=== PATIENT | male | born 1980 | race Caucasian/White ===

== ENCOUNTER 2020-04-29 04:11 | Emergency (ER) | payer BC ==
[2020-04-29] MEDS ORDERED: Lidocaine 5% 700 MG Patch TOP ONE (04:29)
[2020-04-29] MEDS ORDERED: HYDROmorphone 1 MG/ML Syringe IM ONE (04:30)
[2020-04-29] MEDS ORDERED: traMADol 50 MG Tab PO ONE (04:30)
[2020-04-29 04:35] VITALS: BP 143/88
--- NOTE | 2020-04-29 04:44 | EDM.PDOC ---
ED HPI GENERAL MEDICAL PROBLEM - General Chief Complaint: Back Pain or Injury Stated Complaint: BACK PAIN Time Seen by Provider: 04/29/20 04:13 - History of Present Illness INITIAL COMMENTS - FREE TEXT/NARRATIVE: HISTORY AND PHYSICAL: History of present illness: This is a 39-year-old gentleman with a history significant for chronic lower back pain who is status post a discectomy of L5-S1 who presents ER today secondary to increasing pain to his lower back radiating down his right leg that started early this morning. Patient reports that when he tried to get out of bed approximately noontime today he felt a sharp pain radiating down his right leg. Patient reports he has been in severe pain since. Patient reports that the doctor that usually write him for his Katy 7.5 has been fired from the clinic that he goes to and he does have an appointment to see someone there for another 2 weeks. Patient reports that he ran out of his Katy 7.5's and has not been able to get that refilled secondary to his primary care doctor being fired. Patient reports he also takes baclofen and ibuprofen for his pain which he took today with minimal relief in his discomfort. Patient reports that he has used lidocaine patches in the past with varying degrees of relief. Patient denies any recent fevers, shakes, chills, nausea, vomiting, diarrhea, dysuria, frequency, urgency, hematuria. Patient denies any weakness to his upper or lower extremities. Patient reports that he has been able to ambulate but is somewhat limited secondary to his pain and not weakness. Patient denies any loss of bowel or bladder function. Patient denies any paresthesias to his perineum or perirectal region. Patient denies any weakness or paresthesias to his lower extremities. Review of systems: As per history of present illness and below otherwise all systems reviewed and negative. Past medical history: As per history of present illness and as reviewed below otherwise noncontributory. Surgical history: As per history of present illness and as reviewed below otherwise noncontributory. Social history: No reported history of drug or alcohol abuse. Family history: As per history of present illness and as reviewed below otherwise noncontributory. Physical exam: Constitutional: Patient is oriented to person, place, and time. Appears well- developed and well-nourished. No distress. HEENT: Moist mucous membranes Head: Normocephalic and atraumatic Eyes: Right eye exhibits no discharge. Left eye exhibits no discharge. No scleral icterus Neck: Normal range of motion. No tracheal deviation present. Cardiovascular: Normal rate and regular rhythm. Pulmonary: Effort normal, no respiratory distress. Abdominal: No distention Musculoskeletal: Normal range of motion Neurologic: Alert and oriented to person, place and time. Skin: [place], warm and dry. Psychiatric: Normal mood and affect. Behavior is normal. Judgment and thought content normal. Nursing note and vital signs have been reviewed Patient's ER physical exam is significant for tenderness palpation to patient's lower back at the L4 L5-S1 region. Patient does have an old incisional scar in that region with no fluctuance, erythema or evidence of infection. Patient has tenderness to palpation throughout his entire lower extremity. Patient lower extremities are warm and dry. Patient has bounding DP/PT pulses bilaterally. Patient has excellent capillary refill. Patient has no evidence of DVT or arterial occlusion on exam. Patient's sensations are intact. Neuro: A&Ox3. Cranial nerves II-XII grossly intact, 5/5 strength to bilateral upper and lower extremities, sensation intact to bilateral upper and lower extremities, no nystagmus, PERRLA, EOMI, normal speech, proprioception intact to bilateral lower extremities, normal finger to nose test, gait normal Patient is able to ambulate but appears to be in discomfort and pain. This patient was seen and evaluated during the 2019 SARS-CoV-2 novel coronavirus pandemic period. Community viral transmission is ongoing at time of this encounter and the emergency department is operating under pandemic response procedures. Therapeutics: Dilaudid 1 mg IM Lidoderm patch Assessment and plan: This is a 39-year-old gentleman with a history significant for chronic lower back pain who is status post discectomy who is scheduled to have fusion of L4 L5-S1 in the near future who presents ER today complaining of severe pain to his lower back that occurred early this morning. Patient reports that he woke up in the morning and let his dog out without any difficulty. He went back to bed at approximately noontime when he tried to get up he felt a snap to his lower back and has been having severe pain radiating down his right leg since. Patient's physical exam is unremarkable for any acute neurological deficits. Patient does have significant pain discomfort with palpation of his lower extremity. Patient is neurologically intact without any evidence of DVT or acute arterial occ lusion. Patient does not exhibit any signs or symptoms consistent with cauda equina syndrome. Patient denies any paresthesias to his perineal region or perirectal region. Patient denies any loss of bowel or bladder function. Patient reports that he is requesting assistance with pain management until he is able to see his doctor in 2 weeks so that they can resume his Katy 7.5 that he is run out of. Patient be given a dose of Dilaudid here in the ED as well as a Lidoderm patch. I have discussed with the patient that I will not be able to refill his Katy 7.5 prescriptions for 2-week. But I will assist him with a short supply as well as a prescription for Lidoderm patches. Patient is in agreement with this plan. Reassessment at the time of disposition demonstrates that the patient is in no acute distress. The patient has remained stable throughout the entire ED visit and is without objective evidence for acute process requiring urgent intervention or hospitalization. The patient is stable for discharge, counseling is provided as documented above, discussed symptomatic treatment and specific conditions for return. I have spoken with the patient/caregiver and discussed todays findings, in addition to providing specific details for the plan of care. Questions are answered and there is agreement with the plan. Definitive disposition and diagnosis as appropriate pending reevaluation and review of above. DME note: Crutches ordered for patient to utilize to assist with ambulation and stability. Patient reports severe pain and inability to ambulate secondary to pain and instability when he walks and he is unable to go up the stairs. Crutches will assist patient by helping stabilize him and help prevent him from falling. This should be utilized for 2 weeks until he is able to see his primary care physician for definitive management and fusion of L4 L5-S1. Lower Back Pain Score (Numeric/FACES): 5 Right Foot Pain Score (Numeric/FACES): 10 - Related Data Allergies Allergy/AdvReac Type Severity Reaction Status Date / Time No Known Allergies Allergy Verified 12/09/14 10:34 Home Meds: Home Meds Acetaminophen/HYDROcodone [Katy 325-7.5 MG] 1 tab PO Q6H PRN #15 tablet 04/29/20 [Rx] Acetaminophen/HYDROcodone [Katy 325-7.5 MG] 1 tab PO Q6H PRN #15 tablet 04/29/20 [Rx] Baclofen 20 mg PO ASDIRECTED PRN 04/29/20 [History] Lidocaine 5% [Lidoderm 5%] 1 patch TOP DAILY PRN #7 patch 04/29/20 [Rx] Past Medical History - Past Health History Medical/Surgical History: Denies Medical/Surgical History ED ROS GENERAL - Review of Systems Review Of Systems: See Below ED EXAM, GENERAL - Physical Exam Exam: See Below Course - Vital Signs Last Recorded V/S: Last Vital Signs Temp 97.7 F 04/29/20 04:30 Pulse 118 H 04/29/20 04:30 Resp 16 04/29/20 04:30 BP 143/88 H 04/29/20 04:30 Pulse Ox 96 04/29/20 04:30 - Orders/Labs/Meds Orders: Active Orders 24 hr Category Date Time Status DME for Discharge [COMM] Stat Oth 04/29/20 05:30 Ordered Meds: Medications Discontinued Medications Generic Name Dose Route Start Last Admin Trade Name Freq PRN Reason Stop Dose Admin Hydromorphone HCl 1 mg 04/29/20 04:30 04/29/20 04:49 Dilaudid IM 04/29/20 04:31 1 mg ONETIME ONE Administration Lidocaine 700 mg 04/29/20 04:29 04/29/20 04:46 Lidoderm 5% TOP 04/29/20 04:30 700 mg ONETIME ONE Administration Tramadol HCl 50 mg 04/29/20 04:30 04/29/20 04:45 Ultram PO 04/29/20 04:31 50 mg ONETIME ONE Administration Departure - Departure Time of Disposition: 04:44 Disposition: Home, Self-Care 01 Condition: Good Clinical Impression: Low back pain radiating down leg Low back pain Qualifiers: Chronicity: acute Back pain laterality: right - Discharge Information Prescriptions: Lidocaine 5% [Lidoderm 5%] 1 patch TOP DAILY PRN #7 patch PRN Reason: Pain Acetaminophen/HYDROcodone [Katy 325-7.5 MG] 1 tab PO Q6H PRN #15 tablet PRN Reason: Pain Acetaminophen/HYDROcodone [Katy 325-7.5 MG] 1 tab PO Q6H PRN #15 tablet PRN Reason: Pain Instructions: Acute Back Pain, Adult, What You Need to Know About Chronic Back Pain Forms: ED Department Discharge Additional Instructions: You were seen and evaluated in the ER today for an acute exacerbation of your chronic lower back pain. You have been given a dose of intramuscular Dilaudid in the ER as well as a Lidoderm patch. You will be given a prescription to assist you with pain as well as a prescription for Lidoderm patches. Please call your family physician to see if they can get in sooner than 2-week so they can assist you with pain management. The following information is given to patients seen in the emergency department who are being discharged to home. This information is to outline your options for follow-up care. We provide all patients seen in our emergency department with a follow-up referral. The need for follow-up, as well as the timing and circumstances, are variable depending upon the specifics of your emergency department visit. If you don't have a primary care physician on staff, we will provide you with a referral. We always advise you to contact your personal physician following an emergency department visit to inform them of the circumstance of the visit and for follow-up with them and/or the need for any referrals to a consulting specialist. The emergency department will also refer you to a specialist when appropriate. This referral assures that you have the opportunity for follow-up care with a specialist. All of these measure are taken in an effort to provide you with optimal care, which includes your follow-up. Under all circumstances we always encourage you to contact your private physician who remains a resource for coordinating your care. When calling for follow-up care, please make the office aware that this follow-up is from your recent emergency room visit. If for any reason you are refused follow-up, please contact the [facility] Department at and asked to speak to the emergency department charge nurse. [facility] [address] [place] [id number] [id number] Sepsis Event Note (ED) - Focused Exam Vital Signs: Vital Signs Temp Pulse Resp BP Pulse Ox 04/29/20 04:30 97.7 F 118 H 16 143/88 H 96 - My Orders Last 24 Hours: My Active Orders 04/29/20 05:30 DME for Discharge [COMM] Stat - Assessment/Plan Last 24 Hours: My Active Orders 04/29/20 05:30 DME for Discharge [COMM] Stat
[2020-04-29 05:53] VITALS: PULSE 117
== END 2020-04-29 05:40 | disposition home or self-care (01) ==
LOC: MW.ED 04:11
DX: M54.5 Low back pain (principal); M79.671 Pain in right foot
CPT/HCPCS: 96372; 99283; 99284; A9270-GY; J1170